=== PATIENT | female | born 1975 | race Caucasian/White ===

== ENCOUNTER 2017-08-12 16:06 | Inpatient (IN) | payer MEDICAID ==
[~2017-08-12 16:06] MED LIST: GADOBUTROL 10 ML VIAL IVP ONE
[2017-08-12] MEDS ORDERED: NS 500 ML IV ONE (16:12)
--- NOTE | 2017-08-12 16:25 | CPEKG ---
Heart Rate: 73 RR Interval: 822 P-R Interval: 172 QRSD Interval: 78 QT Interval: 392 QTC Interval: 432 P [place]: 34 QRS [place]: 71 T Wave [place]: 64 EKG Severity - NORMAL ECG - EKG Impression: SINUS RHYTHM Electronically Signed By: Renato Mccray 12-Aug-2017 20:47:20
[2017-08-12 16:32] LABS: INR 0.87 (0.83-1.16); PROTIME(PATIENT) 12.1 SEC (12.0-15.0)
[2017-08-12] MEDS ORDERED: IOPAMIDOL (ISOVUE 370) 100 ML BTL IV ONE (16:39)
[2017-08-12] MEDS ORDERED: niCARdipine/NACL 200 ML IV SCH (17:00)
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
[2017-08-12] MEDS ORDERED: HYDROmorphone HCL/NS 0.5 MG/ML SYR IVP ONE (19:39)
[2017-08-12] MEDS ORDERED: ACETAMINOPHEN 325 MG TAB PO PRN (19:45)
[2017-08-12] MEDS: NS 1,000 ML IV SCH (23:50)
--- NOTE | 2017-08-13 08:22 | NEUSURGPN ---
Assessment/Plan: 41F with 3x1.4cm Left cerebellar hemorrhage with uncertain etiology at this point in time. DDx include: metastatic lesion vs vascular malformations, less likely HTN. P: sBP<130 pain control, minimize narcotics no new CT unless neuro declines Imaging reviewed by Dr Elliott and he would like to perform and angiogram tomorrow to further investigate the source of the bleed NPO after midnight Neurology following, appreciated input. call with any changes dw Dr. Elliott Subjective: doing well, would like to go home if possible. H/A improved. Objective: VSS NAD AAOx4 cnii-xii grossly intact EOMI, PEARLA no facial droop MAEx4, 5/5=, no pronator drift accurate finger to nose gait deferred SILT. - Physician Discussed Patient with Dr.: Elliott Neurosurgery Physical Exam - Vitals, I&O, Labs I and O 08/12/17 08/13/17 08/14/17 05:59 05:59 05:59 Intake Total 1180 Balance 1180 Weight 65.771 kg Intake: Oral (ml) 400 IV Infused (ml) 780 Ns 1,000 ml @ 70 mls/hr 280 IV CONT OPHELIA Rx#: [id number] Other: Number of Voids Toilet 2 Vital Signs Temp Pulse Resp BP Pulse Ox 37.1 C 73 10 L 91/57 L 99 08/12/17 20:00 08/13/17 04:00 08/13/17 04:00 08/13/17 04:00 08/13/17 04:00 ICD10 Worksheet Patient Problems: Problems Problem Status Onset Cerebellar hemorrhage, acute Acute
--- NOTE | 2017-08-13 10:03 | NEUROPROG ---
Assessment: Total unit time of 25 min. The patient has a left cerebellar hemorrhage of uncertain source but seems to be stable clinically. The recommendation from my perspective would be to follow-up with Neurosurgery for imaging once the blood is resort and and further management strategies will depend on the ultimate diagnosis once it is established. She was told to avoid nonsteroidal anti- inflammatory medications because the blood thing effect and she says she would rather be at home where she can have access to marijuana to control her headaches affectively and can also use Tylenol if she wishes. I will defer to Neurosurgery on decision to discharge today, but it seems as if that would probably be reasonable. Subjective: The patient is reporting that she has some significant headache which is a little better this morning. She is not having any focal neurologic complaints. She has some light sensitivity. She has not noticed any new symptoms developing overnight. Objective: Vital Signs Temp Pulse Resp BP Pulse Ox 37.1 C 73 10 L 91/57 L 99 08/12/17 20:00 08/13/17 04:00 08/13/17 04:00 08/13/17 04:00 08/13/17 04:00 08/12/17 08/13/17 08/14/17 05:59 05:59 05:59 Intake Total 1180 Balance 1180 PT 12.1 SEC (12.0-15.0) 08/12/17 16:11 INR 0.87 (0.83-1.16) 08/12/17 16:11 She is just awakening but able to communicate effectively and has normal cognition other than appearing a little bit uncomfortable. Allergies/Adverse Reactions: No Known Allergies Allergy (Verified 08/12/17 16:21)
[2017-08-13] MEDS: oxyCODONE IR 5 MG TAB PO PRN (12:39)
--- NOTE | 2017-08-13 13:07 | ASMTCMCOM ---
CM Note CM Note Notes: Patient admitted with a new cerebral hemorrhage. She has a history of a TBI in 2007. She is being seen by neurology and neurosurgery. 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 Patient lives independently with her boyfriend Pernell. She had some questions for me about applying for disability, and I counseled her that she needs to go through [facility] and that we would provide any records they requested. She does not have any other discharge needs, but we're available if any arise. Date Signed: 08/13/2017 01:06 PM Electronically Signed By:Danelle Thomas RN
[2017-08-13] MEDS: ACETAMINOPHEN 500 MG TAB PO PRN ×2 (14:26→20:00)
[2017-08-14] MEDS: ACETAMINOPHEN 500 MG TAB PO PRN ×3 (07:09→22:17)
[2017-08-14] MEDS: NS 1,000 ML IV SCH (08:23)
[2017-08-14] MEDS ORDERED: NS 1,000 ML IV SCH ×2 (09:00→10:30)
[2017-08-14] MEDS ORDERED: MEPERIDINE 25 MG/ML SYR IVP PRN (10:28)
[2017-08-14] MEDS ORDERED: fentaNYL 100 MCG/2 ML INJ IVP PRN (10:28)
[2017-08-14] MEDS ORDERED: HEPARIN 10,000 UNIT/10 ML MDV (1,000 UNIT/ML) IVP PRN (10:28)
[2017-08-14] MEDS ORDERED: ALTEPLASE 2 MG VIAL IVP PRN (10:28)
[2017-08-14] MEDS ORDERED: GLUCAGON HCL 1 MG VIAL IVP PRN (10:28)
[2017-08-14] MEDS ORDERED: PROTAMINE SULFATE 50 MG/5 ML VIAL IVP PRN (10:28)
[2017-08-14] MEDS ORDERED: MIDAZOLAM 2 MG/2 ML VIAL IVP PRN (10:28)
[2017-08-14] MEDS ORDERED: FLUMAZENIL 0.5 MG/5 ML MDV IVP PRN (10:28)
[2017-08-14] MEDS ORDERED: NALOXONE HCL 0.4 MG/ML INJ IVP PRN (10:28)
[2017-08-14] MEDS ORDERED: ONDANSETRON 4 MG/2 ML VIAL ONE (10:56)
[2017-08-14] MEDS ORDERED: IOPAMIDOL (ISOVUE-300) 100 ML BTL ONE (11:22)
--- NOTE | 2017-08-14 11:50 | NEUSURGPN ---
Assessment/Plan: 41F with 3x1.4cm Left cerebellar hemorrhage with uncertain etiology at this point in time. DDx include: metastatic lesion vs vascular malformations, less likely HTN. neuro intact and stable P: sBP<130 pain control, minimize narcotics no new CT unless neuro declines Angiogram later this morning, if no urgent findings to be addressed likely dispo home later today Neurology following, appreciated input. call with any changes dw Dr. Elliott who will see shortly Subjective: headache is improved this morning and is overall feeling better. no new complaints Objective: VSS NAD AAOx4 cnii-xii grossly intact EOMI, PEARLA no facial droop MAEx4, 5/5=, no pronator drift accurate finger to nose gait deferred SILT. Urinary Catheter in Place: No - Physician Discussed Patient with : Lexi Patient Seen by : Lexi Neurosurgery Physical Exam - Vitals, I&O, Labs I and O 08/13/17 08/14/17 08/15/17 05:59 05:59 05:59 Intake Total 1180 600 Balance 1180 600 Weight 65.771 kg Intake: Oral (ml) 400 600 IV Infused (ml) 780 Ns 1,000 ml @ 70 mls/hr 280 IV CONT OPHELIA Rx#: [id number] Other: Number of Voids Toilet 2 2 Vital Signs Temp Pulse Resp BP Pulse Ox 36.6 C 78 12 90/59 L 95 08/14/17 11:35 08/14/17 11:35 08/14/17 11:35 08/14/17 11:35 08/14/17 11:35 Laboratory Results 08/14/17 10:38 ICD10 Worksheet Patient Problems: Problems Problem Status Onset Cerebellar hemorrhage, acute Acute
[2017-08-14] MEDS ORDERED: LIDOCAINE 1% 300 MG/30 ML SDV ONE (11:56)
--- NOTE | 2017-08-14 12:12 | PDPROPOC ---
Sedation Plan of Care Sedation Plan of Care: mental status noted, patient educated of risks, benefits , alternatives ASA Classification: ASA 2 Planned drugs: fentanyl, midazolam Mallampati Score: Class 2 Mallampati Reference Image: Patient passed 3-3-2 rule?: Yes
--- NOTE | 2017-08-14 17:13 | SOAPPROG ---
SOAP Progress Note Assessment/Plan: Assessment: Plan: Subjective: I am 's PCP, lynette notes, discussed care ovalles with her. Appreciate neuro and neurosurg care! Please contact me with care plan at time of discharge. Best Regards, Henna Larsen MD Objective: Vital Signs Temp Pulse Resp BP Pulse Ox 98 F 64 18 90/53 L 96 08/14/17 11:35 08/14/17 16:00 08/14/17 16:00 08/14/17 16:00 08/14/17 16:00 Laboratory Results 08/14/17 10:38 08/13/17 08/14/17 08/15/17 11:59 11:59 11:59 Intake Total 1180 600 350 Output Total 250 Balance 1180 600 100 PT 12.1 SEC (12.0-15.0) 08/12/17 16:11 INR 0.87 (0.83-1.16) 08/12/17 16:11 ICD10 Worksheet Patient Problems: Problems Problem Status Onset Cerebellar hemorrhage, acute Acute
[2017-08-15] MEDS: oxyCODONE IR 5 MG TAB PO PRN (00:41)
[2017-08-15] MEDS: ACETAMINOPHEN 500 MG TAB PO PRN ×2 (08:13→22:40)
--- NOTE | 2017-08-15 08:29 | NEUSURGPN ---
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 call with any changes in neuro exam dw Dr. Elliott who will see shortly Subjective: Headache stable this morning, tolerable on Tylenol. Ready for procedure later this afternoon. Objective: VSS NAD AAOx4 cnii-xii grossly intact EOMI, PEARLA no facial droop MAEx4, 5/5=, no pronator drift gait normal, walking around room - Physician Discussed Patient with Dr.: Elliott Neurosurgery Physical Exam - Vitals, I&O, Labs I and O 08/14/17 08/15/17 08/16/17 05:59 05:59 05:59 Intake Total 600 2500 Output Total 250 Balance 600 2250 Intake: Oral (ml) 600 1500 IV Intake (ml) 350 IV Infused (ml) 650 Ns 1,000 ml @ 70 mls/hr 650 IV CONT OPHELIA Rx#: [id number] Output: Urine (ml) 250 Bedpan 250 Other: Intake Quantity Yes Sufficient Number of Voids Bedpan 4 Toilet 2 3 Vital Signs Temp Pulse Resp BP Pulse Ox 36.8 C 70 20 90/57 L 98 08/15/17 07:29 08/15/17 07:29 08/15/17 07:29 08/15/17 07:29 08/15/17 07:29 Laboratory Results 08/14/17 10:38 ICD10 Worksheet Patient Problems: Problems Problem Status Onset Cerebellar hemorrhage, acute Acute
[2017-08-15] MEDS ORDERED: fentaNYL 100 MCG/2 ML INJ ONE ×2 (13:13→15:59)
[2017-08-15] MEDS ORDERED: MIDAZOLAM 2 MG/2 ML VIAL ONE (13:13)
[2017-08-15] MEDS ORDERED: PROPOFOL/EMULSION 500 MG/50 ML BOTTLE IV ONE ×2 (13:14→15:24)
[2017-08-15] MEDS ORDERED: epHEDrine SULFATE 10 MG/ML SYR ONE (14:05)
[2017-08-15] MEDS ORDERED: LIDOCAINE 2% 5 ML SDV ONE ×2 (14:05→17:01)
[2017-08-15] MEDS ORDERED: SUGAMMADEX SODIUM 200 MG/2 ML VIAL IVP ONE ×2 (14:05→16:50)
[2017-08-15] MEDS ORDERED: ONDANSETRON 4 MG/2 ML VIAL ONE ×3 (14:05→19:13)
[2017-08-15] MEDS ORDERED: ROCURONIUM 50 MG/5 ML VIAL ONE ×2 (14:05→14:12)
[2017-08-15] MEDS ORDERED: IOPAMIDOL (ISOVUE-300) 100 ML BTL ONE ×2 (14:07→17:29)
[2017-08-15] MEDS ORDERED: CALCIUM CHLORIDE 1 GM/10 ML INJ ONE ×2 (14:14→15:13)
--- NOTE | 2017-08-15 14:25 | PDANEPAE ---
ANE Past Medical History - Pulmonary History Hx Oxygen in Use at Home: No Hx Sleep Apnea: No Sleep Apnea Screening Result - Last Documented: Negative - Endocrine History Hx Diabetes: No - Chronic Pain History Chronic Pain: Yes ANE Review of Systems Review of Systems: ANE Patient History - Allergies Allergies/Adverse Reactions: No Known Allergies Allergy (Verified 08/12/17 16:21) - Home Medications Home Medications: Herbals/Supplements -Info Only 1 ea PO DAILY 08/12/17 [Last Taken Unknown] Nature-Throid 130 mg PO DAILY 08/12/17 [Last Taken Unknown] - Smoking Hx Smoking Status: Never smoked ANE Labs/Vital Signs - Labs Result Diagrams: 08/14/17 10:38 - Vital Signs Blood Pressure: 89/56 Heart Rate: 73 Respiratory Rate: 20 O2 Sat (%): 96 Height: 161.29 cm Weight: 65.771 kg ANE Physical Exam - Airway Neck exam: FROM Mallampati Score: Class 1 Mouth exam: normal dental/mouth exam - Pulmonary Pulmonary: no respiratory distress, no rales or rhonchi, clear to auscultation - Cardiovascular Cardiovascular: regular rate and rhythym, no murmur, rub, or gallop ANE Anesthesia Plan Anesthesia Plan: general endotracheal anesthesia Lines/Monitors: arterial line, additional IV Total IV Anesthesia: Yes
[2017-08-15] MEDS ORDERED: NS 500 ML IV PRN (14:33)
[2017-08-15] MEDS ORDERED: NALOXONE HCL 0.4 MG/ML INJ IVP PRN (14:33)
[2017-08-15] MEDS ORDERED: DEXAMETHASONE 4 MG/ML VIAL IVP PRN (14:33)
[2017-08-15] MEDS ORDERED: fentaNYL 100 MCG/2 ML INJ IVP PRN (14:33)
[2017-08-15] MEDS ORDERED: PROMETHAZINE HCL 25 MG/ML INJ IVP PRN (14:33)
[2017-08-15] MEDS ORDERED: ALBUTEROL 3 ML DEYVIAL IH PRN (14:33)
[2017-08-15] MEDS ORDERED: ONDANSETRON 4 MG/2 ML VIAL IVP PRN ×2 (14:33→19:25)
--- NOTE | 2017-08-15 14:41 | NEUROPROG ---
Assessment: PATIENT NOT SEEN 1. Left Cerebellar hemorrhage Pt in IR suite for procedure notes reviewed, angio apparently revealed fistula as cause of bleed neurology will s/o patient can f/u with Dr Kyle as outpatient for any ongoing outpatient neurologic needs thank you for consultation Objective: Vital Signs Temp Pulse Resp BP Pulse Ox 36.8 C 73 20 89/56 L 96 08/15/17 11:36 08/15/17 14:24 08/15/17 14:24 08/15/17 14:24 08/15/17 14:24 Laboratory Results 08/14/17 10:38 08/14/17 08/15/17 08/16/17 05:59 05:59 05:59 Intake Total 600 2500 Output Total 250 Balance 600 2250 PT 12.1 SEC (12.0-15.0) 08/12/17 16:11 INR 0.87 (0.83-1.16) 08/12/17 16:11 Allergies/Adverse Reactions: No Known Allergies Allergy (Verified 08/12/17 16:21)
[2017-08-15] MEDS ORDERED: VERAPAMIL 5 MG/2 ML VIAL ONE (15:03)
[2017-08-15] MEDS ORDERED: HEPARIN 10,000 UNIT/10 ML MDV (1,000 UNIT/ML) ONE ×2 (15:04)
[2017-08-15] MEDS ORDERED: ROCURONIUM 100 MG/10 ML VIAL ONE (16:00)
[2017-08-16] MEDS ORDERED: NS BOLUS 500 ML IV ONE (00:30)
--- NOTE | 2017-08-16 07:13 | NEUSURGPN ---
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 Elliott Subjective: Pt resting in bed, eyes sensitive to light. States headache is improved, doesn' t want any tylenol this am Objective: AAOx3 NAD VSS CN II-XII grossly intact PERRL MAEx4 Motor 5/5 BUE/BLE +LT Urinary Catheter in Place: No - Physician Discussed Patient with Dr.: Elliott Neurosurgery Physical Exam - Vitals, I&O, Labs I and O 08/15/17 08/16/17 08/17/17 05:59 05:59 05:59 Intake Total 2500 1200 Output Total 250 1470 Balance 2250 -270 Weight 65.771 kg Intake: Oral (ml) 1500 200 IV Intake (ml) 350 1000 IV Infused (ml) 650 Ns 1,000 ml @ 70 mls/hr 650 IV CONT OPHELIA Rx#: [id number] Output: Urine (ml) 250 1400 Bedpan 250 Catheter 1400 Estimated Blood Loss (ml) 70 Other: Intake Quantity Yes Sufficient Number of Voids Bedpan 4 Toilet 3 1 Number of Stools Catheter 0 Vital Signs Temp Pulse Resp BP Pulse Ox 36.9 C 72 16 87/50 L 96 08/16/17 04:00 08/16/17 04:00 08/16/17 04:00 08/16/17 04:30 08/16/17 04:00 Laboratory Results 08/14/17 10:38 ICD10 Worksheet Patient Problems: Problems Problem Status Onset Cerebellar hemorrhage, acute Acute
--- NOTE | 2017-08-16 10:52 | POSTANESTH ---
Post Anesthetic Evaluation Cardiovascular Status: Normal, Stable, Similar to Pre-Op Cond Respiratory Status: Normal, Stable, Similar to Pre-op Cond. Level of Consciousness/Mental Status: Can Participate in Eval Pain Control: Adequate, Prn Tx Ordered Nausea/Vomiting Control: Adequate, Prn Tx Ordered Complications Possibly Related to Anesthesia: None Noted
[2017-08-16 12:15] VITALS: BP 101/52
--- NOTE | 2017-08-16 14:10 | ASMTCMCOM ---
CM Note CM Note Notes: Patient found to have L cerebellar hemorrhage/fistula S/P embolization. Therapies to work w/patient to determine fi she might have discharge needs. Date Signed: 08/16/2017 02:09 PM Electronically Signed By:Kathleen Borjas LCSW
== END 2017-08-16 17:05 | disposition home or self-care (01) | DRG 24 ==
LOC: F2N 18:09
PROVIDERS: ADMIT Physician Assistant Surgical; ATTEND Neurological Surgery
PROC: B31R1ZZ Fluoroscopy of Intracranial Arteries using Low Osmolar Contrast (ICD-10-PCS; 2017-08-14)
PROC: 03VG3DZ Restriction of Intracranial Artery with Intraluminal Device, Percutaneous Approach (ICD-10-PCS; principal; 2017-08-15 17:22)
PROC: B31R1ZZ Fluoroscopy of Intracranial Arteries using Low Osmolar Contrast (ICD-10-PCS; principal; 2017-08-15 17:22)
DX: I60.32 Nontraumatic subarachnoid hemorrhage from left posterior communicating artery (principal); E04.1 Nontoxic single thyroid nodule
CPT/HCPCS: 92507-GN; 92523-GN; 97161-GP; 97165-GO; A9585; C1769; C1887; C1893; C1894; J1170; J1644; J2250; J2310; J2405; J2704; J3010; Q9967

== ENCOUNTER 2018-03-08 15:35 | Emergency (ER) | payer MEDICAID ==
[2018-03-08 16:49] LABS: PLATELET COUNT 252 10^3/uL (150-400)
--- NOTE | 2018-03-08 17:36 | EDPHY ---
H & P Stated Complaint: HX BRAIN ANEURYSM/SURG 08/17 ACUTE PROB WITH R EYE VISION/OLIVAREZ/TWINGEL Time Seen by Provider: 03/08/18 17:08 HPI/ROS: CHIEF COMPLAINT: Headache, dizziness HISTORY OF PRESENT ILLNESS: The 42-year-old female with history of cerebral aneurysm presents with headache and dizziness. In July 2017 she presented with severe headache and was diagnosed with an occipital aneurysm. The aneurysm was repaired by Dr. Elliott. She has been doing well until 3 days ago, when she was driving home from [place]. Sudden onset spinning sensation, associated with nausea. She continued to drive and the spinning sensation gradually decreased. However she continues to have intermittent dizziness, now associated with blurry vision in right eye, photophobia and headache. Feels the symptoms are similar to prior aneurysm. No other aneurysm seen on previous imaging. REVIEW OF SYSTEMS: complete 10 point ROS reviewed and is negative except for the noted elements in the HPI - Personal History LMP (Females 10-55): 8-14 Days Ago Current Tetanus Diphtheria and Acellular Pertussis (TDAP): Unsure - Medical/Surgical History Hx Asthma: No Hx Chronic Respiratory Disease: No Hx Diabetes: No Hx Cardiac Disease: No Hx Renal Disease: No Hx Cirrhosis: No Hx Alcoholism: No Hx HIV/AIDS: No Hx Splenectomy or Spleen Trauma: No Other PMH: hypothyroidism,-hypopituitary, gallbladder removed at age 17, ACL sx , BRAIN ANEURYSM - Social History Smoking Status: Never smoked - Physical Exam Exam: General Appearance: Alert, pleasant, does not appear in pain Eyes: Pupils equal and round, no conjunctival pallor or injection ENT, Mouth: Mucous membranes moist Neck: Normal inspection Respiratory: Lungs are clear to auscultation Cardiovascular: Regular rate and rhythm Gastrointestinal: Abdomen is soft and nontender Neurological: Alert, oriented x3, cranial nerves II through XII intact, motor 5 /5, sensory intact to light touch, normal gait. Skin: Warm and dry, no rash Extremities: Nontender, no pedal edema Psychiatric: Mood and affect normal Constitutional: Initial Vital Signs Temperature (C) 36.7 C 03/08/18 15:42 Heart Rate 79 03/08/18 15:42 Respiratory Rate 18 03/08/18 15:42 Blood Pressure 118/87 H 03/08/18 15:42 O2 Sat (%) 98 03/08/18 15:42 O2 Delivery Mode Room Air Allergies/Adverse Reactions: No Known Allergies Allergy (Verified 03/08/18 15:41) Home Medications: Medication Instructions Recorded ARMOUR THYROID 03/08/18 Gabapentin 03/08/18 Medical Decision Making - Diagnostics Imaging Results: Imaging Impressions Head CT 03/08/18 17:23 Impression: 1. No acute hemorrhage or mass effect. 2. No hydrocephalus, midline shift or herniation. 3. No definite acute infarct. 4. Left occipital lobe embolization material. 5. Consider MRI of the brain, if there is continued clinical concern. Findings and recommendations discussed with Emergency Department physician, Brooklyn Romero at 1800 hour, 03/08/2018. Final report concurs with initial preliminary interpretation. Head CTA 03/08/18 17:24 Impression: 1. Left thyroid 2.2- x 1.1-cm suspicious partially calcified mass. Recommend follow-up ultrasound thyroid as well ultrasound FNA biopsy to exclude malignancy. 2. No evidence of carotid or vertebral dissection, flow-limiting stenosis, occlusion, or carotid atherosclerotic disease. Measurement of carotid stenosis is based on the residual internal carotid diameter with [place] Symptomatic Carotid Endarterectomy Trial (NASCET) based stenosis levels. CT Angiogram of the Brain Clinical Indications: Visual changes. Technique: CT angiogram of the brain and neck was performed, with the uneventful intravenous administration of 85 mL Isovue-370 contrast. Multiplanar reconstructions including 3D reconstructions performed and evaluated on [employer] workstation in order to better evaluate the [place] vessels. Images were manipulated by the radiologist at the computer workstation. Dose reduction techniques were utilized. Findings: Major vessels of the [place] are adequately displayed, demonstrating no definite evidence of new aneurysm, vascular malformation, flow- limiting stenosis, or occlusion. Embolization material in the periphery of the left cerebellar hemisphere from previous neurosurgery embolization. Major vessels of the [place] appear patent, without new vascular malformations or definite aneurysms. Superior sagittal sinus, transverse sinuses, and major veins demonstrate no evidence of intraluminal thrombi. Impression: No evidence of occlusion of the [place] vessels or definite residual aneurysm or vascular malformations. However, recommend Neurosurgery follow up. Findings and recommendations discussed with Emergency Department physician, Brooklyn Romero M.D., at 1800 hours, on March 08, 2018. Final report concurs with initial preliminary interpretation. E:amm Neck CTA 03/08/18 17:24 Impression: 1. Left thyroid 2.2- x 1.1-cm suspicious partially calcified mass. Recommend follow-up ultrasound thyroid as well ultrasound FNA biopsy to exclude malignancy. 2. No evidence of carotid or vertebral dissection, flow-limiting stenosis, occlusion, or carotid atherosclerotic disease. Measurement of carotid stenosis is based on the residual internal carotid diameter with [place] Symptomatic Carotid Endarterectomy Trial (NASCET) based stenosis levels. CT Angiogram of the Brain Clinical Indications: Visual changes. Technique: CT angiogram of the brain and neck was performed, with the uneventful intravenous administration of 85 mL Isovue-370 contrast. Multiplanar reconstructions including 3D reconstructions performed and evaluated on [employer] workstation in order to better evaluate the [place] vessels. Images were manipulated by the radiologist at the computer workstation. Dose reduction techniques were utilized. Findings: Major vessels of the [place] are adequately displayed, demonstrating no definite evidence of new aneurysm, vascular malformation, flow- limiting stenosis, or occlusion. Embolization material in the periphery of the left cerebellar hemisphere from previous neurosurgery embolization. Major vessels of the [place] appear patent, without new vascular malformations or definite aneurysms. Superior sagittal sinus, transverse sinuses, and major veins demonstrate no evidence of intraluminal thrombi. Impression: No evidence of occlusion of the [place] vessels or definite residual aneurysm or vascular malformations. However, recommend Neurosurgery follow up. Findings and recommendations discussed with Emergency Department physician, Brooklyn Romero M.D., at 1800 hours, on March 08, 2018. Final report concurs with initial preliminary interpretation. E:amm Imaging: Discussed imaging studies w/ bingo caller Radiologist, I viewed and interpreted images myself ED Course/Re-evaluation: Old medical record reviewed. Will proceed with CTA of the head and neck to evaluate for possible aneurysm. CT/CTA results d/w pt. No evidence of ICH, recurrent aneurysm. Pt greatly relieved. No evidence of serious etiology of OLIVAREZ. Likely tension OLIVAREZ. Will f/u with neuro, has appt next week. d/w pt thyroid mass, will f/u PCP. Differential Diagnosis: Headache including but not limited to subarachnoid hemorrhage, migraine headache , tension headache and infectious causes such as meningitis, pharyngitis and sinusitis. - Data Points Laboratory Results: Laboratory Results 03/08/18 16:30 03/08/18 16:30 03/08/18 03/08/18 03/08/18 16:37 16:30 16:30 WBC RBC Hgb Hct MCV MCH MCHC RDW Plt Count MPV Neut % (Auto) Lymph % (Auto) [place] % (Auto) Eos % (Auto) Baso % (Auto) Nucleat RBC Rel Count Absolute Neuts (auto) Absolute Lymphs (auto) Absolute Monos (auto) Absolute Eos (auto) Absolute Basos (auto) Absolute Nucleated RBC Immature Gran % Immature Gran # Sodium 140 mEq/L mEq/L (135-145) Potassium 3.9 mEq/L mEq/L (3.3-5.0) Chloride 107 mEq/L mEq/L (97-110) Carbon Dioxide 24 mEq/l mEq/l (22-31) Anion Gap 9 mEq/L mEq/L (6-14) BUN 10 mg/dL mg/dL (7-23) Creatinine 0.5 mg/dL L mg/dL (0.6-1.0) Estimated GFR > 60 Glucose 83 mg/dL mg/dL (70-100) Calcium 9.1 mg/dL mg/dL (8.5-10.4) POC Troponin I 0.00 ng/mL ng/mL (0.00-0.08) TSH 2.010 uIU/mL uIU/mL (0.465-4.680) Free T4 0.80 ng/dL ng/dL (0.59-2.19) Free T3 3.63 pg/mL pg/mL (2.77-5.27) 03/08/18 16:30 WBC 7.96 10^3/uL 10^3/uL (3.80-9.50) RBC 4.47 10^6/uL 10^6/uL (4.18-5.33) Hgb 13.5 g/dL g/dL (12.6-16.3) Hct 40.8 % % (38.0-47.0) MCV 91.3 fL fL (81.5-99.8) MCH 30.2 pg pg (27.9-34.1) MCHC 33.1 g/dL g/dL (32.4-36.7) RDW 12.8 % % (11.5-15.2) Plt Count 252 10^3/uL 10^3/uL (150-400) MPV 10.2 fL fL (8.7-11.7) Neut % (Auto) 49.9 % % (39.3-74.2) Lymph % (Auto) 39.2 % % (15.0-45.0) [place] % (Auto) 8.3 % % (4.5-13.0) Eos % (Auto) 1.6 % % (0.6-7.6) Baso % (Auto) 0.6 % % (0.3-1.7) Nucleat RBC Rel Count 0.0 % % (0.0-0.2) Absolute Neuts (auto) 3.97 10^3/uL 10^3/uL (1.70-6.50) Absolute Lymphs (auto) 3.12 10^3/uL H 10^3/uL (1.00-3.00) Absolute Monos (auto) 0.66 10^3/uL 10^3/uL (0.30-0.80) Absolute Eos (auto) 0.13 10^3/uL 10^3/uL (0.03-0.40) Absolute Basos (auto) 0.05 10^3/uL 10^3/uL (0.02-0.10) Absolute Nucleated RBC 0.00 10^3/uL 10^3/uL (0-0.01) Immature Gran % 0.4 % % (0.0-1.1) Immature Gran # 0.03 10^3/uL 10^3/uL (0.00-0.10) Sodium Potassium Chloride Carbon Dioxide Anion Gap BUN Creatinine Estimated GFR Glucose Calcium POC Troponin I TSH Free T4 Free T3 Point of Care Test Results: Chemistry 03/08/18 16:37 POC Troponin I 0.00 ng/mL ng/mL (0.00-0.08) Departure - Departure Disposition: Home, Routine, Self-Care Clinical Impression: Dizziness Headache Qualifiers: Headache type: tension-type Headache chronicity pattern: acute headache Intractability: not intractable Qualified Code(s): G44.209 - Tension-type headache, unspecified, not intractable Condition: Good Instructions: Acute Headache (ED), Dizziness (ED) Additional Instructions: You have a thyroid mass. You will need a biopsy of this mass. Followup with your PCP. The CT and CT angiogram of your brain and neck are normal. There is no sign of recurrent hemorrhage or aneurysm. Please follow-up with Dr. Elliott in the office. Referrals: Henna Larsen MD [Primary Care Provider] - As per Instructions
[2018-03-08] MEDS ORDERED: IOPAMIDOL (ISOVUE 370) 100 ML BTL IV ONE (17:37)
[2018-03-08 19:30] VITALS: BP 104/59
--- NOTE | 2018-03-08 23:35 | CPEKG ---
Test Reason : OPEN Blood Pressure : / mmHG Vent. Rate : 073 BPM Atrial Rate : 074 BPM P-R Int : 171 ms QRS Dur : 076 ms QT Int : 397 ms P-R-T Axes : -08 066 049 degrees QTc Int : 438 ms Sinus rhythm Confirmed by Brooklyn Romero ([id number]) on 03/08/2018 11:35:06 PM Referred By: Confirmed By:Brooklyn Romero
== END 2018-03-08 19:29 | disposition home or self-care (01) ==
DX: R51 Headache (principal); R42 Dizziness and giddiness; E04.1 Nontoxic single thyroid nodule; Z87.820 Personal history of traumatic brain injury
CPT/HCPCS: 84481-90; 84484-PO; Q9967

== ENCOUNTER → 2018-04-18 | Outpatient (CLI) | payer MEDICAID ==
[~2018-04-18] MED LIST changes: -GADOBUTROL 10 ML VIAL IVP ONE; +LIDOCAINE 1% 300 MG/30 ML SDV ONE
== END ==
LOC: FIMAGING 08:34
PROVIDERS: ATTEND Family Medicine
PROC: 0G9K3ZX Drainage of Thyroid Gland, Percutaneous Approach, Diagnostic (ICD-10-PCS; principal; 2018-04-18)
DX: E04.1 Nontoxic single thyroid nodule (principal)